=== PATIENT | female | born 1965 | race Caucasian/White ===

== ENCOUNTER → 2016-07-29 | Outpatient (CLI) | payer MEDICAID ==
[2014-01-15 10:31] VITALS: BP 107/55
--- NOTE | 2016-07-29 08:49 | RAD ---
HISTORY: Osteoarthritis Study: Left knee three view Comparison: None Findings: There is moderate tricompartmental degenerative joint disease present with mild medial lateral and p atellofemoral compartment narrowing, femoral osteophyte formation and pointing of the tibial spines. No joint effusion or joint erosion is present. IMPRESSION: Mild of moderate tricompartmental degenerative joint disease Reported By:
--- NOTE | 2016-07-29 08:50 | RAD ---
HISTORY: Right knee pain, osteoarthritis, swelling Study: Right knee four view Comparison: None Findings: The patient is status post total knee arthroplasty. Position alignment is anatomic. There is no evid ence for fracture, loosening, or joint effusion. IMPRESSION: Status post right TKA in good position without acute findings Reported By:
== END ==
LOC: RAD 08:07
PROVIDERS: ATTEND Specialist
DX: M17.0 Bilateral primary osteoarthritis of knee (principal)
CPT/HCPCS: 73564

== ENCOUNTER → 2016-08-11 | Outpatient (CLI) | payer MEDICAID ==
[2014-01-15 10:31] VITALS: BP 107/55
--- NOTE | 2016-08-11 13:15 | NM ---
HISTORY: Right medial knee pain/swelling status post TKA 3-4 years ago. Also history of back pain wi th previous back surgeries. Study: Nuclear medicine whole-body bone scan Comparison: Knee radiograph 07/29/2016, lumbar MRI 04/26/2016 Technique: Whole body bone scintigraphy was performed in the anterior and posterior projection after the intravenous administration of 25.3 mCi of technetium labeled MDP in the right antecubital fossa . Findings: Physiologic distribution of radiotracer is observed throughout the appendicular and axial skeleton. Normal soft tissue uptake and renal excretion is noted. There is symmetric, degenerative type uptak e involving the bilateral shoulders and sacroiliac joints. There is increased tracer activity seen a round the left knee where there were tricompartmental osteoarthritic changes present on recent radio graphs. There is relative photopenia around the right knee corresponding to the prosthesis. There is increased tracer activity seen around the femoral and tibial portions of the prosthesis. No evidenc e to suggest acute fracture. IMPRESSION: 1. Increased tracer activity seen around the femoral and tibial portions of the right knee prosthesi s. Findings are nonspecific but can be seen with loosening and/or infection. 2. Increased tracer activity ulcer around the left knee corresponding to advanced degenerative [place] es. Reported By:
== END ==
LOC: RAD 08:36
PROVIDERS: ATTEND Specialist
DX: M25.561 Pain in right knee (principal)
CPT/HCPCS: 36415; 78306; 85652; 86140

== ENCOUNTER → 2016-12-15 | Outpatient (CLI) | payer MEDICAID ==
[2014-01-15 10:31] VITALS: BP 107/55
--- NOTE | 2016-12-20 17:15 | CT ---
HISTORY: Bilateral flank pain Study: CT abdomen and pelvis without contrast Comparison: None Technique: Multiple axial images of the abdomen and pelvis were obtained from the lung bases to the pubic symphy sis without the administration of IV contrast. Findings: The visualized portions of the lung bases are unremarkable. Punctate calcific density within the infe rior pole of the right and left kidney are observed revealing 2 mm stones of the right and left kidne y. No obstructive uropathy can be identified. The liver, spleen, pancreas, and adrenal glands are unr emarkable in their CT appearance. Clips are noted within the gallbladder fossa consistent with prior cholecystectomy. No significant mesenteric lymphadenopathy or stranding can be observed. No free fl uid or free air is seen within the abdomen. The anterior abdominal wall demonstrates a small fat con taining umbilical hernia postsurgical changes consistent with a gastric sleeve are observed. No bowel wall thickening or bowel dilatation is present. The colon is unremarkable. Specifically, there is no diverticulosis noted within the sigmoid colon. The urinary bladder is grossly unremarkable. The b rich structures are grossly intact. IMPRESSION: 1. A small fat containing umbilical hernia is observed along the anterior abdominal wall. 2. Postsurgical change system with gastric sleeve procedure. 3. Status post cholecystectomy. 4. Nonobstructing nephrolithiasis with 2 mm stones within the inferior pole of the right and left kid eduardo. Reported By:
== END | disposition home or self-care (01) | DRG 392 ==
LOC: RAD 13:49
PROVIDERS: ATTEND Nurse Practitioner Family
DX: R10.84 Generalized abdominal pain (principal); K42.9 Umbilical hernia without obstruction or gangrene; N20.0 Calculus of kidney
CPT/HCPCS: 74176

== ENCOUNTER → 2017-02-17 | Outpatient (CLI) | payer MEDICAID ==
[2014-01-15 10:31] VITALS: BP 107/55
--- NOTE | 2017-02-17 09:33 | RAD ---
Examination: Right knee, three views History: Bilateral pain Comparison reference 07/29/2016 Findings: Arthroplasty components remain anatomically related, without evidence for interval displace ment, periprosthetic fracture, loosening or acute injury. No synovial effusion is identified. Impression: Stable appearance of right TKA; no interval abnormality demonstrated. Reported By:
--- NOTE | 2017-02-17 09:37 | RAD ---
Examination: Left knee, three views History: Bilateral knee pain Comparison reference 07/29/2016. Findings: Degenerative narrowing of patellar-femoral, lateral and medial compartments. Marginal osteo phytes are prominent. No fracture or bone destruction identified. Impression: Re-demonstration of tricompartmental osteoarthritis. No acute features identified. Reported By:
== END ==
LOC: RAD 08:40
PROVIDERS: ATTEND Specialist
DX: M25.561 Pain in right knee (principal); M25.562 Pain in left knee; M17.12 Unilateral primary osteoarthritis, left knee; Z96.651 Presence of right artificial knee joint
CPT/HCPCS: 73564